=== PATIENT | male | born 1935 | race Caucasian/White ===

== ENCOUNTER 2020-11-30 14:52 | Observation (INO) ==
[2020-11-30] MEDS ORDERED: Naloxone 0.4 MG/ML INJ IVP PRN (21:53)
[2020-11-30] MEDS ORDERED: Acetaminophen 325 MG TABLET PO PRN (21:53)
[2020-11-30] MEDS ORDERED: Ondansetron ODT 4 MG TAB.RAPDIS SL PRN (21:53)
[2020-11-30] MEDS ORDERED: Perflutren Lipid Microsphere 1.3 ML in 0.9 % Sodium Chloride 8.7 ML IVP PRN (21:55)
[2020-11-30] MEDS ORDERED: *HR* Heparin 5,000 UNIT/ML VIAL IVP PRN (22:37)
[2020-11-30] MEDS ORDERED: *HR* Heparin 5,000 UNIT/ML VIAL IVP ONE (22:37)
[2020-11-30 22:56] LABS: Hematocrit 42.2 % (37.5-50.1); Hemoglobin 13.7 g/dL (12.9-16.9); Mean Corpuscular HGB Conc 32.5 g/dL (31.6-35.5); Mean Corpuscular Hemoglobin 29.9 pg (28.0-33.3); Mean Corpuscular Volume 92.1 fL (83.0-100.0); Mean Platelet Volume 9.6 fL (9.4-12.4); Platelet Count 211 K/mcL (140-400); Red Blood Count 4.58 M/mcL (4.19-5.50); Red Cell Distribution Width 13.2 % (11.5-14.5)
[2020-11-30 23:04] LABS: INR 1.3; Prothrombin Time 14.7 Seconds (9.4-12.1)
[2020-11-30] MEDS: Heparin 25,000UNIT/250ML 1/2NS 25,000 UNIT/250 ML IV.SOLN IVC SCH (23:16)
[2020-11-30] MEDS ORDERED: D5% in Water 1,000 ML IVC PRN (23:21)
[2020-11-30] MEDS ORDERED: *HR* Dextrose 50 % in Water (Vial) 50 ML VIAL IVP PRN (23:21)
[2020-11-30] MEDS ORDERED: Dextrose Gel 15 GM/37.5 ML TUBE PO PRN ×2 (23:21)
[2020-11-30 23:48] LABS: Bilirubin,Urine Negative (Negative); Blood,Urine Negative (Negative); Clarity,Urine Clear (Clear); Color,Urine Colorless (Yellow); Glucose,Urine (UA) Normal (Normal); Ketones,Urine Negative (Negative); Leukocyte Esterase,Urine Negative (Negative); Nitrite,Urine Negative (Negative); PH,Urine 6.5 pH Units (5.0-8.0); Protein,Urine Negative (Neg-Trace); Specific Gravity,Urine 1.011 (1.010-1.025); Urobilinogen,Urine Normal (Normal)
[2020-12-01 00:45] LABS: Basophils # 0.1 K/mcL (0.0-0.2); Basophils % 0.7 %; Eosinophils # 0.2 K/mcL (0.0-0.6); Eosinophils % 2.9 %; Hematocrit 41.6 % (37.5-50.1); Hemoglobin 13.4 g/dL (12.9-16.9); Immature Granulocytes % 0.4 % (0-4); Lymphocytes # 2.1 K/mcL (0.6-4.6); Lymphocytes % 28.9 %; Mean Corpuscular HGB Conc 32.2 g/dL (31.6-35.5); Mean Corpuscular Hemoglobin 29.8 pg (28.0-33.3); Mean Corpuscular Volume 92.7 fL (83.0-100.0); Mean Platelet Volume 9.8 fL (9.4-12.4); Monocytes # 0.8 K/mcL (0.0-1.3); Monocytes % 11.1 %; Neutrophils # 4.1 K/mcL (1.6-8.9); Platelet Count 209 K/mcL (140-400); Red Blood Count 4.49 M/mcL (4.19-5.50); Red Cell Distribution Width 13.1 % (11.5-14.5); White Blood Count 7.2 K/mcL (4.3-11.1)
[2020-12-01 00:49] LABS: INR 1.3; Prothrombin Time 15.1 Seconds (9.4-12.1)
[2020-12-01 00:56] LABS: Alanine Aminotransferase 14 Units/L (7-52); Albumin 3.8 g/dL (3.5-5.7); Albumin/Globulin Ratio 1.5 (1.1-2.2); Alkaline Phosphatase 41 Units/L (34-104); Aspartate Amino Transferase 16 Units/L (13-39); BUN/Creatinine Ratio 21 (6-26); Bilirubin,Total 0.7 mg/dL (0.3-1.0); Blood Urea Nitrogen 28 mg/dL (8-23); Calcium 9.6 mg/dL (8.6-10.3); Carbon Dioxide 28 mEq/L (23-29); Chloride 106 mEq/L (98-107); Chol/HDL Ratio 2.2 (0-4.9); Cholesterol 95 mg/dL (< 200); Globulin 2.5 g/dL (2.4-3.5); Glucose 61 mg/dL (70-105); HDL Cholesterol 44 mg/dL (40-59); LDL Cholesterol,Calculated 37 mg/dL (< 100); Magnesium 1.8 mg/dL (1.6-2.6); Osmolality,Calculated 295 (280-300); Phosphorous 2.9 mg/dL (2.7-4.5); Potassium 4.1 mEq/L (3.5-5.1); Sodium 141 mEq/L (136-145); Total Protein 6.3 g/dL (6.4-8.9); Triglycerides 68 mg/dL (< 150); eGFR For African Americans > 60 (> 60); eGFR For Non-African Americans 50 (> 60)
[2020-12-01 00:59] LABS: Troponin I 0.25 ng/mL (< 0.04)
[2020-12-01 01:08] LABS: Estimated Average Glucose 163 mg/dl; Hemoglobin A1C 7.3 %
[2020-12-01 01:10] LABS: Thyroid Stimulating Hormone 2.941 mcIU/mL (0.340-5.600)
[2020-12-01 01:21] LABS: Folate > 22.3 ng/mL (3.0-16.0); Vitamin B12 164 pg/mL (250-1100)
[2020-12-01] MEDS: Insulin LISPRO 300 UNITS/3 ML VIAL SUBQ SCH ×3 (07:06→17:02)
[2020-12-01] MEDS: *HR* Heparin 5,000 UNIT/ML VIAL IVP PRN (07:14)
[2020-12-01] MEDS: Gabapentin 300 MG CAPSULE PO SCH ×2 (17:01→21:39)
[2020-12-01] MEDS: Budesonide/Formoterol 160/4.5 1 PUFF INH IH SCH (20:19)
[2020-12-02] MEDS: *HR* Heparin 5,000 UNIT/ML VIAL IVP PRN (01:40)
[2020-12-02] MEDS: Heparin 25,000UNIT/250ML 1/2NS 25,000 UNIT/250 ML IV.SOLN IVC SCH (04:40)
[2020-12-02 06:38] VITALS: BP 174/81; PULSE 85; TEMP 97.3; O2SAT 93
[2020-12-02] MEDS: Budesonide/Formoterol 160/4.5 1 PUFF INH IH SCH (07:30)
[2020-12-02] MEDS: Insulin LISPRO 300 UNITS/3 ML VIAL SUBQ SCH (07:33)
[2020-12-02] MEDS: Gabapentin 300 MG CAPSULE PO SCH (08:18)
[2020-12-02] MEDS ORDERED: Finasteride 5 MG TABLET PO SCH (09:00)
== END 2020-12-02 10:47 | disposition home or self-care (01) ==
LOC: 3ANU → SUATTDRO 20:14
PROVIDERS: ADMIT Internal Medicine; ATTEND Family Medicine